=== PATIENT | female | born 1985 | race Caucasian/White ===

== ENCOUNTER 2017-10-15 19:03 | Inpatient (IN) | payer OTHER ==
[~2017-10-15] VITALS: Ht 154.9 cm; Wt 70.9 kg
[2017-10-15] VITALS (16 sets, daily range): BP systolic 84–129; BP diastolic 50–82; PULSE 82–120; TEMP 98.7
[2017-10-15 20:18] LABS: BASO % 0.3 % (0.0-2.0); EOS # 0.1 (0.0-0.7); EOS % 0.6 % (0-4.0); GRAN # 6.1 (1.4-6.5); LYMPH # 2.9 (1.2-3.4); LYMPH % 29.1 % (20.0-51.0); MEAN CELL VOLUME 97 fl (80.0-100.0); MEAN CORPUSCULAR HGB CONC 34 g/dl (33.0-37.0); MEAN PLATELET VOLUME 13.2 fl (7.4-10.4); MONO # 0.7 (0.1-0.6); MONO % 7.5 % (1.7-9.3); PLATELET COUNT 151 K/mm3 (130-400); RED BLOOD COUNT 3.61 M/mm3 (4.10-5.30); WHITE BLOOD COUNT 9.8 K/mm3 (4.8-10.8)
[2017-10-15 20:19] LABS: HEMOGLOBIN 11.8 g/dl (12.5-16.0); MEAN CORPUSCULAR HEMOGLOBIN 33 pg (27.0-31.0)
[2017-10-15] MEDS ORDERED: PERCOCET 325 MG1 TA2 PO (22:12)
[2017-10-15] MEDS ORDERED: MOTRIN 800800 MG/TAB PO (22:12)
[2017-10-15] MEDS ORDERED: ZOLOFT 100MG100 MG PO (23:16)
[2017-10-15] MEDS ORDERED: FLEXERIL 1010 MG/TAB PO (23:17)
[2017-10-15] MEDS ORDERED: BUSPAR10 MG PO (23:17)
[2017-10-16 00:45] VITALS: BP 137/84; PULSE 98
[2017-10-16 01:45] VITALS: BP 118/71; PULSE 103; TEMP 97.9
[2017-10-16 05:22] VITALS: BP 123/76; PULSE 95; TEMP 98.9
[2017-10-16 07:28] VITALS: BP 120/85; PULSE 87; TEMP 98.7
[2017-10-16 17:02] VITALS: BP 126/86; PULSE 78; TEMP 98.8
[2017-10-16 22:05] VITALS: BP 135/92; PULSE 84; TEMP 98.4
[2017-10-17 08:20] VITALS: BP 100/80; PULSE 82; TEMP 98.1
== END 2017-10-17 12:30 | disposition home or self-care (01) | DRG 775 ==
LOC: LDRO 19:03 → OB 19:35 → LDR 19:35 → OB 10-16 01:15
PROVIDERS: Obstetrics & Gynecology
PROC: 10D07Z6 Extraction of Products of Conception, Vacuum, Via Natural or Artificial Opening (ICD-10-PCS; principal; 2017-10-15)
PROC: 0KQM0ZZ Repair Perineum Muscle, Open Approach (ICD-10-PCS; 2017-10-15)
DX: O60.14X0 Preterm labor third trimester with preterm delivery third trimester, not applicable or unspecified (principal); O76 Abnormality in fetal heart rate and rhythm complicating labor and delivery; O70.1 Second degree perineal laceration during delivery; O75.89 Other specified complications of labor and delivery; Z3A.36 36 weeks gestation of pregnancy; Z37.0 Single live birth
CPT/HCPCS: J2210; J2590; J7120

== ENCOUNTER 2017-10-29 05:47 | Day surgery (SDC) | payer OTHER ==
[~2017-10-29] VITALS: Ht 154.9 cm; Wt 57.7 kg
[~2017-10-29 05:47] MED LIST: BUSPAR10 MG PO; FLEXERIL 1010 MG/TAB PO; MOTRIN 800800 MG/TAB PO; PERCOCET 325 MG1 TA2 PO; ZOLOFT 100MG100 MG PO
[2017-10-29 08:41] LABS: BASO # 0.1 (0.0-0.2); BASO % 0.6 % (0.0-2.0); EOS # 0.2 (0.0-0.7); EOS % 2.7 % (0-4.0); GRAN # 5.9 (1.4-6.5); GRAN % 71.8 % (42.2-75.2); LYMPH # 1.5 (1.2-3.4); LYMPH % 18.6 % (20.0-51.0); MEAN CELL VOLUME 97 fl (80.0-100.0); MEAN CORPUSCULAR HGB CONC 33 g/dl (33.0-37.0); MEAN PLATELET VOLUME 11.5 fl (7.4-10.4); MONO # 0.5 (0.1-0.6); MONO % 5.7 % (1.7-9.3); PLATELET COUNT 299 K/mm3 (130-400); RED BLOOD COUNT 3.67 M/mm3 (4.10-5.30); WHITE BLOOD COUNT 8.2 K/mm3 (4.8-10.8)
[2017-10-29 08:46] LABS: HEMATOCRIT 35.4 % (37.0-47.0); HEMOGLOBIN 11.6 g/dl (12.5-16.0); MEAN CORPUSCULAR HEMOGLOBIN 32 pg (27.0-31.0)
[2017-10-29 09:53] VITALS: BP 106/53; PULSE 66; TEMP 98.6
[2017-10-29 11:53] VITALS: BP 98/52; PULSE 64; TEMP 97.5
[2017-10-29 12:10] VITALS: BP 100/50; PULSE 72
[2017-10-29 12:25] VITALS: BP 93/50; PULSE 66
[2017-10-29] MEDS ORDERED: METHERGINE0.2 MG/TAB PO (12:31)
[2017-10-29] MEDS ORDERED: CEPHALEXIN500 M1 PO (12:31)
== END 2017-10-29 13:00 | disposition home or self-care (01) ==
LOC: COL.ER 05:47 → SDCO 08:07
PROVIDERS: Emergency Medicine
DX: O72.2 Delayed and secondary postpartum hemorrhage (principal); I34.1 Nonrheumatic mitral (valve) prolapse; G43.909 Migraine, unspecified, not intractable, without status migrainosus; F32.9 Major depressive disorder, single episode, unspecified; F41.9 Anxiety disorder, unspecified; Z82.49 Family history of ischemic heart disease and other diseases of the circulatory system
CPT/HCPCS: J1580; J2405; J2704; J3010; J7030; J7120

== ENCOUNTER → 2018-01-10 | Outpatient (CLI) | payer OTHER ==
[~2018-01-10] MED LIST changes: +CEPHALEXIN500 M1 PO; +METHERGINE0.2 MG/TAB PO
== END ==
LOC: MC.RAD 10:21
DX: N61.0 Mastitis without abscess (principal)